=== PATIENT | female | born 1980 | race Caucasian/White ===

== ENCOUNTER → 2018-12-19 | Outpatient (CLI) | payer OTHER ==
--- NOTE | 2018-12-20 08:49 | RAD ---
Three-view cervical spine Indication: M54.6 Comparison: None. Impression: Vertebral body height maintained. No acute fracture or subluxation. Mild kyphosis centered at C5-C6 where there is mild disc space height loss. C1-C2 articulation unremarkable. Electronically signed by: Jer Elmore MD 12/20/2018 8:46 AM [facility]
--- NOTE | 2018-12-20 09:01 | RAD ---
Study: Two views of the thoracic spine. Indication: M54.2 Comparison: None. Impression: 5 degrees levocurvature centered at the T12 level. Vertebral body height maintained without fracture or subluxation. Mild disc space height loss of the mid thoracic disc space levels. Electronically signed by: Jer Elmore MD 12/20/2018 8:57 AM [facility]
== END ==
LOC: RAD 13:28
PROVIDERS: ATTEND Chiropractor
DX: M54.2 Cervicalgia (principal); M54.6 Pain in thoracic spine